=== PATIENT | female | born 1960 | race Hispanic/Latino ===

== ENCOUNTER 2022-01-19 14:41 | Emergency (ER) | payer BC, OTHER ==
--- OUTSIDE RECORDS SUMMARY | 2022-01-19 14:45 | XMS REPORT | Continuity of Care Document ---
:1960 Author Organization [facility] t Address [address] [place] [address] [address]. [address] [place] [address] Care Team Providers Name Role Phone Ismael Jean Attending Clinician Unavailable REGINE VINCENT Attending Clinician Unavailable LONNIE KHANNA Attending Clinician Unavailable Lab, Adc Fam Pob I Attending Clinician Unavailable Lonnie Cheung Attending Clinician Payers Payer Name Policy Type Policy Number Effective Date Expiration Date S [facility] [id number] 2019 00:00:00 Problems This patient has no known problems. Allergies, Adverse Reactions, Alerts Allergy Allergy Status Severity Reaction(s) Onset Inactive Treating Comm ents Source Name Type Date Date Clinician NO KNOWN Drug Active Univers ALLERGIE Class ity of [facility] Social History Social Habit Start Date Stop Date Quantity Comments Source Sex Assigned At Uni versity [facility] Smoking Status Start Date Stop Date Source Unknown if ever smoked Universit y [facility] Medications This patient has no known medications. Procedures This patient has no known procedures. Encounters Start End Encounter Admission Attending Care Care Encounter Source Date/Time Date/Time Type Type Clinicians Facility Department ID 2021-11-06 Outpatient RIVER Jean [facility] [id number] Common 10:56:01 [facility] 2021-10-25 Outpatient [facility] [id number] [place] 09:24:[id number] [facility] 2021-08-11 Outpatient RIVER Jean [facility] [id number] Common 11:47:02 Ismael 17397 [facility] 2021-07-09 Outpatient Jean, STLMLC [facility] [id number] Common 14:18:41 Ismael [id number] [facility] 2021-11-07 2021-11-07 ambulatory [facility]LMLC [facility] [id number] Common 00:00:00 00:00:00 [facility] 2021-09-15 2021-09-15 ambulatory STLMLC STLMLC [id number] Common 00:00:00 00:00:00 [facility] 2021-09-11 2021-09-11 ambulatory STLMLC STLMLC [id number] Common 00:00:00 00:00:00 [facility] 2021-08-13 2021-08-13 ambulatory STLMLC STLMLC [id number] Common 00:00:00 00:00:00 [facility] 2021-08-11 2021-08-11 ambulatory STLMLC STLMLC [id number] Common 00:00:00 00:00:00 [facility] 2021-07-18 2021-07-18 ambulatory STLMLC STLMLC [id number] Common 00:00:00 00:00:00 [facility] 2021-05-13 2021-05-13 ambulatory STLMLC STLMLC [id number] Common 00:00:00 00:00:00 [facility] 2020-08-27 2020-08-27 Outpatient Steve VINCENT [facility] [id number] Univers 14:10:00 14:10:00 REGINE [id number] [facility] 2020-08-27 2020-08-27 Outpatient Steve VINCENT [facility] [id number] Univers 14:10:00 14:10:00 REGINE [facility] 2020-08-06 2020-08-06 Outpatient [facility] [id number] Univers 13:40:00 13:40:00 [id number] [facility] 2020-08-06 2020-08-06 Outpatient Steve VINCENT [facility] [id number] Univers 13:40:00 13:40:00 REGINE [facility] 2020-05-29 2020-05-29 Outpatient R ESDRAS [facility] [id number] Univers 09:40:00 09:40:00 LONNIE [facility] 2020-05-29 2020-05-29 Laboratory Lab, [facility] Pob I [facility] 1.2. [id number] Univers 08:42:54 09:02:54 Only Lonnie Khanna [facility] [id number] [facility] [id number] [place] [facility] [phone] Sc dical [facility] [address] Results This patient has no known results.
[2022-01-19 15:56] LABS: Absolute Lymphocytes (CBC) 2.6 K/uL (0.7-4.9); Hematocrit 38.9 % (36.0-45.0); Lymphocytes % 32.5 % (15.3-44.8); MPV 8.5 fL (7.6-11.3); RBC Red Blood Cell Count 4.23 M/uL (3.86-4.86)
[2022-01-19 16:05] LABS: Albumin 3.4 g/dL (3.4-5.0); Bilirubin Total 0.3 mg/dL (0.2-1.0); Potassium 4.1 mmol/L (3.5-5.1); Protein, Total 7.5 g/dL (6.4-8.2)
--- NOTE | 2022-01-19 17:08 | RAD REPORT ---
EXAM DESCRIPTION: CTStone Protocol - 01/19/2022 4:48 pm CLINICAL HISTORY: Flank pain, kidney stone suspected COMPARISON: No comparisons TECHNIQUE: CT of the abdomen and pelvis was performed. All CT scans are performed using dose optimization technique as appropriate and may include automated exposure control or mA/KV adjustment according to patient size. FINDINGS: Lower chest: No acute abnormality. Liver: No acute abnormality or suspicious lesions. Biliary: Cholecystectomy Stomach: No significant focal abnormality. Duodenum: No significant focal abnormality. Pancreas: No significant abnormality. Spleen: No significant abnormality. Adrenal: No suspicious lesions. Kidney/ureter: No hydronephrosis. No renal calculi. Retroperitoneum: No retroperitoneal adenopathy. Vascular: No aneurysm. Mild atherosclerosis. Bowel: No significant focal abnormality. Normal appendix. Peritoneum: No ascites or free air. Fat containing periumbilical hernia. Bladder: Grossly unremarkable. Reproductive: No adnexal masses. Hysterectomy. Bones: No acute fracture. Bone island in the right iliac bone. Other: Skin thickening at the patient's pannus. IMPRESSION: No acute intra-abdominal or pelvic finding. Normal appendix. No urinary tract calculi.
[2022-01-19 18:07] LABS: Urine Bacteria <20 /HPF (<20); Urine RBC <5 /HPF (None Seen)
[2022-01-19] MEDS ORDERED: KETOROLAC 30 MG/ML INJ ONE (18:10)
[2022-01-19] MEDS ORDERED: LIDOCAINE 4% PATCH ONE (18:35)
--- NOTE | 2022-01-19 18:38 | EDPHYS ---
Physician Documentation [facility] Name: Jael Thornton Age: 61 yrs Sex: Female : 1960 Arrival Date: 01/19/2022 Time: 14:46 Bed 12 Private MD: Ted [facility] ED Physician Arie Murcia HPI: 01/19 15:15 This 61 yrs old Female presents to ER via Ambulatory with complaints of Flank cp Pain - right, Back Pain. 15:15 The patient complains of pain in the right flank. cp 15:15 The pain radiates to the right lower abdomen. cp 15:15 Onset: The symptoms/episode began/occurred 3 day(s) ago. cp 15:15 Modifying factors: the symptoms are aggravated by movement. Associated signs and cp symptoms: Pertinent negatives: diarrhea, dysuria, fever, hematuria, pain radiating to the lower extremities, vomiting. Severity of pain: in the emergency department the pain is unchanged despite home interventions. Historical: - Allergies: 14:58 No Known Allergies; kr3 - PMHx: 14:58 Diabetes mellitus; Hypertensive disorder; kr3 - PSHx: 14:58 Cholecystectomy; hysterectomy; stomach sx; kr3 - Immunization history:: Client reports receiving the 2nd dose of the Covid vaccine. - Social history:: Smoking status: Patient denies any tobacco usage or history of. ROS: 15:20 Constitutional: Negative for body aches, chills, fever, poor PO intake. cp 15:20 Eyes: Negative for injury, pain, redness, and discharge. cp 15:20 ENT: Negative for drainage from ear(s), ear pain, sore throat, difficulty swallowing, difficulty handling secretions. 15:20 Cardiovascular: Negative for chest pain, palpitations. 15:20 Respiratory: Negative for cough, shortness of breath, wheezing. 15:20 Abdomen/GI: Positive for abdominal pain, of the right lower quadrant, Negative for vomiting, diarrhea, constipation. 15:20 Back: Positive for flank pain, on the right, Negative for injury or acute deformity, decreased range of motion. 15:20 : Negative for urinary symptoms, pelvic pain, vaginal bleeding, vaginal discharge. 15:20 Skin: Negative for cellulitis, rash. 15:20 Neuro: Negative for altered mental status, dizziness, headache, numbness, weakness. 15:20 All other systems are negative. Exam: 15:25 Constitutional: The patient appears in no acute distress, alert, awake, cp non-diaphoretic, non-toxic, well developed, well nourished, obese. 15:25 Head/Face: Normocephalic, atraumatic. cp 15:25 Eyes: Periorbital structures: appear normal, Conjunctiva: normal, no exudate, no injection, Sclera: no appreciated abnormality, Lids and lashes: appear normal, bilaterally. 15:25 ENT: External ear(s): are unremarkable, Nose: is normal, Mouth: Lips: moist, Oral mucosa: moist, Posterior pharynx: Airway: no evidence of obstruction, patent. 15:25 Chest/axilla: Inspection: normal. 15:25 Cardiovascular: Rate: normal, Rhythm: regular, Edema: is not appreciated. 15:25 Respiratory: the patient does not display signs of respiratory distress, Respirations: normal, no use of accessory muscles, no retractions, labored breathing, is not present, Breath sounds: are clear throughout, no decreased breath sounds, no stridor, no wheezing. 15:25 Abdomen/GI: Inspection: obese Bowel sounds: active, all quadrants, Palpation: soft, in all quadrants, moderate abdominal tenderness, in the posterior aspect of right lateral abdomen, anterior aspect of right lateral abdomen and right lower quadrant, rebound tenderness, is not appreciated, involuntary guarding, is not appreciated. 15:25 Back: CVA tenderness, is absent. 15:25 Skin: cellulitis, is not appreciated, no rash present. 15:25 Neuro: Orientation: is normal, Mentation: is normal, Motor: moves all fours, strength is normal, Sensation: is normal. Vital Signs: 14:55 Pulse 81; Resp 18; Temp 97.2; Pulse Ox 97% ; Weight 89.81 kg; Height 5 ft. 2 in. kr3 (157.48 cm); Pain 5/10; 15:01 BP 130 / 70; kr3 18:21 BP 159 / 70; Pulse 78; Resp 16; Pulse Ox 99% ; Pain 8/10; kb3 18:34 BP 158 / 82; Pulse 84; Resp 16; Pulse Ox 99% on R/A; Pain 8/10; hb 14:55 Body Mass Index 36.21 (89.81 kg, 157.48 cm) kr3 MDM: 15:00 Differential diagnosis: nephrolithiasis, pyelonephritis, UTI, colitis, appendicitis. cp 17:50 Patient medically screened. cp 18:35 Data reviewed: vital signs, nurses notes, lab test result(s), radiologic studies, CT cp scan. 18:37 Counseling: I had a detailed discussion with the patient and/or guardian regarding: the cp historical points, exam findings, and any diagnostic results supporting the discharge/admit diagnosis, lab results, radiology results, to return to the emergency department if symptoms worsen or persist or if there are any questions or concerns that arise at home. 18:37 Response to treatment: the patient's symptoms have mildly improved after treatment, and cp as a result, I will discharge patient. Special discussion: Based on the patient's Hx, exam, and Dx evaluation, there is no indication for emergent surgery or inpatient Tx. It is understood by the patient/guardian that if the Sx's persist or worsen they need to return immediately for re-evaluation. 01/19 14:59 Order name: CBC with Diff; Complete Time: 16:26 01/19 14:59 Order name: CMP; Complete Time: 16:26 01/19 16:26 Interpretation: Normal except: GLUC 268; GFR 77; AST 44; ALK 120; GLOB 4.1; A/G 0.8. 01/19 14:59 Order name: Lipase; Complete Time: 16:26 01/19 14:59 Order name: Urine Microscopic Only; Complete Time: 18:16 01/19 18:16 Interpretation: Reviewed. 01/19 15:00 Order name: CT Stone Protocol; Complete Time: 17:16 01/19 17:16 Interpretation: Report reviewed. 01/19 14:59 Order name: IV Saline Lock; Complete Time: 15:44 01/19 14:59 Order name: Labs collected and sent; Complete Time: 15:44 01/19 14:59 Order name: Urine Dipstick-Ancillary (obtain specimen); Complete Time: 18:22 cp Administered Medications: 18:10 Drug: Ketorolac 15 mg Route: IVP; Site: right antecubital; kb3 18:49 Follow up: Response: No adverse reaction hb 18:34 Drug: Lidoderm Patch 5 % (700 mg/patch) 1 patches Route: Topical; Site: affected area; hb 18:49 Follow up: Response: Medication administered at discharge. Disposition Summary: 01/19/22 18:37 Discharge Ordered Location: Home cp Problem: new cp Symptoms: have improved cp Condition: Stable cp Diagnosis - Lower abdominal pain, unspecified cp - Low back pain - right cp Followup: cp - With: Private Physician - When: 2 - 3 days - Reason: Recheck today's complaints Discharge Instructions: - Discharge Summary Sheet cp - Abdominal Pain, Adult cp - Heat Therapy cp - Back Exercises cp Forms: - Medication Reconciliation Form cp - Thank You Letter cp - Antibiotic Education cp - Prescription Opioid Use cp Prescriptions: - Lidoderm 5 % Topical adhesive patch,medicated - apply 1 patch by TOPICAL route once daily; 10 patch; Refills: 0, Product cp Selection Permitted - Cyclobenzaprine 10 mg Oral Tablet - take 1 tablet by ORAL route every 8 hours As needed; 30 tablet; Refills: 0, cp Product Selection Permitted - Diclofenac Sodium 75 mg Oral tablet,delayed release (DR/EC) - take 1 tablet by ORAL route 2 times per day; 20 tablet; Refills: 0, Product cp Selection Permitted Addendum: 01/20/2022 19:47 Co-signature as Attending Physician, Arie Murcia MD. r n Signatures: Dispatcher [employer] EDArie Sheikh MD MD rn Page, Corey, Dagmar Corona cp, RN RN Rea Christianson RN RN kr3 Mariann Coulter RN RN kb3
--- NOTE | 2022-01-19 18:38 | ER ---
Nurse's Notes [facility] Name: Jael Thornton Age: 61 yrs Sex: Female : 1960 Arrival Date: 01/19/2022 Time: 14:46 Bed 12 Private MD: Ismael Jean Diagnosis: Lower abdominal pain, unspecified;Low back pain-right Presentation: 01/19 14:53 Chief complaint: Patient states: lower right abdomen pain x 3 days, radiates to back. kr3 Chief complaint:. 14:53 Method Of Arrival: Ambulatory kr3 14:55 Coronavirus screen: Vaccine status: Patient reports receiving the 2nd dose of the covid kr3 vaccine. Client denies travel out of the [place] in the last 14 days. Ebola Screen: Patient denies travel to an Ebola-affected area in the 21 days before illness onset. Initial Sepsis Screen: Does the patient meet any 2 criteria? No. Patient's initial sepsis screen is negative. Does the patient have a suspected source of infection? Yes: Dysuria/Frequency/Urgency/UTI Acute abdominal pain. Risk Assessment: Do you want to hurt yourself or someone else? Patient reports no desire to harm self or others. Onset of symptoms was January 17, 2022. 14:55 Acuity: UMA 3 kr3 Triage Assessment: 15:00 General: Appears in no apparent distress. uncomfortable, Behavior is calm, cooperative, kr3 appropriate for age. Pain: Complains of pain in right flank Pain radiates to back Pain currently is 5 out of 10 on a pain scale. Musculoskeletal: Reports pain in back and abdomen. Historical: - Allergies: 14:58 No Known Allergies; kr3 - PMHx: 14:58 Diabetes mellitus; Hypertensive disorder; kr3 - PSHx: 14:58 Cholecystectomy; hysterectomy; stomach sx; kr3 - Immunization history:: Client reports receiving the 2nd dose of the Covid vaccine. - Social history:: Smoking status: Patient denies any tobacco usage or history of. Screenin:10 Abuse screen: Denies threats or abuse. Nutritional screening: No deficits noted. kb3 Tuberculosis screening: No symptoms or risk factors identified. Fall Risk None identified. Assessment: 18:10 Reassessment: No changes from previously documented assessment. Pain: Complains of pain kb3 in right lower quadrant Pain radiates to right low back Pain Quality of pain is described as sharp, Pain began 2-3 days ago. Is continuous. Neuro: No deficits noted. Level of Consciousness is awake, alert, Oriented to person, place, time, situation. 18:10 : Reports pain in right flank(s), lower quadrant(s). kb3 18:35 Reassessment: Patient appears in no apparent distress at this time. Patient and/or hb family updated on plan of care and expected duration. Pain level reassessed. Patient is alert, oriented x 3, equal unlabored respirations, skin warm/dry/pink. Vital Signs: 14:55 Pulse 81; Resp 18; Temp 97.2; Pulse Ox 97% ; Weight 89.81 kg; Height 5 ft. 2 in. kr3 (157.48 cm); Pain 5/10; 15:01 BP 130 / 70; kr3 18:21 BP 159 / 70; Pulse 78; Resp 16; Pulse Ox 99% ; Pain 8/10; kb3 18:34 BP 158 / 82; Pulse 84; Resp 16; Pulse Ox 99% on R/A; Pain 8/10; hb 14:55 Body Mass Index 36.21 (89.81 kg, 157.48 cm) kr3 ED Course: 14:46 Patient arrived in ED. am2 14:46 Ismael Jean DO is Private Physician. am2 14:58 Triage completed. kr3 14:58 Zain Ashraf PA is PHCP. cp 14:58 Arie Murcia MD is Attending Physician. cp 15:02 Arm band placed on. kr3 15:43 Inserted saline lock: 22 gauge in right forearm, using aseptic technique. Blood zm collected. 15:44 CBC with Diff Sent. zm 15:44 CMP Sent. zm 15:44 Lipase Sent. zm 16:50 CT Stone Protocol In Process Unspecified. EDMS 17:49 Patient placed in an exam room, on a stretcher. kb3 17:59 Mariann Coulter, RN is Primary Nurse. kb3 18:10 Patient has correct armband on for positive identification. Bed in low position. Call kb3 light in reach. 18:10 No provider procedures requiring assistance completed. kb3 18:49 IV discontinued, intact, bleeding controlled, No redness/swelling at site. hb Administered Medications: 18:10 Drug: Ketorolac 15 mg Route: IVP; Site: right antecubital; kb3 18:49 Follow up: Response: No adverse reaction hb 18:34 Drug: Lidoderm Patch 5 % (700 mg/patch) 1 patches Route: Topical; Site: affected area; hb 18:49 Follow up: Response: Medication administered at discharge. hb Medication: 18:10 VIS not applicable for this client. kb3 Outcome: 18:37 Discharge ordered by . ramonita 18:48 Discharged to home ambulatory. hb 18:48 Condition: stable 18:48 Discharge instructions given to patient, Instructed on discharge instructions, follow up and referral plans. medication usage, Demonstrated understanding of instructions, follow-up care, medications, Prescriptions given X 3. 18:49 Patient left the ED. hb Signatures: Dispatcher [employer] EDMS Zain Ashraf PA PA cp Baxter, Heather, RN RN Kika Tellez Zaina zm Reid, Kelley, RN RN kr3 Mariann Coulter, RN RN kb3
[2022-01-19 20:29] VITALS: TEMP 97.2
[2022-01-19 20:50] VITALS: O2SAT 99
[2022-01-19 20:58] VITALS: BP 158/82
== END 2022-01-19 18:49 | disposition home or self-care (01) ==
LOC: ER 14:41
DX: R10.31 Right lower quadrant pain (principal); M54.50 Low back pain, unspecified; E11.9 Type 2 diabetes mellitus without complications; I10 Essential (primary) hypertension
CPT/HCPCS: 85025; 36415; 81015; 83690; 80053; 76377; 74176; J2001; 96374; 99284